=== PATIENT | male | born 1980 | race Caucasian/White ===

== ENCOUNTER → 2018-07-29 08:56 | Outpatient (CLI) | payer OTHER, SELFPAY ==
[2018-07-28 09:20] VITALS: BMI 29.3
--- NOTE | 2018-07-29 08:59 | RAD_ITS ---
STUDY: X-RAY - LUMBAR SPINE REASON FOR EXAM: Male, 38 years old. Back pain. TECHNIQUE: 2 lateral view(s) of the lumbar spine were obtained, one in flexion and one in extension. COMPARISON: None FINDINGS: There is an exaggerated lumbar lordosis. There is limited range of motion on flexion-extension with an approximate 7 degrees diminished lordosis both at L3-4 and at L5-S1 on flexion compared to distention. There is a normal alignment of the vertebrae without demonstrated instability. There is multilevel endplate spondylosis of the lumbar vertebrae. There is multi-level degenerative disc disease with multi-level disc space narrowing. There is no demonstrated osseous destructive lesion or acute fracture. Generative changes suggested in the lower lumbar facet articulations. The soft tissue structures are unremarkable. RAD/Lumbar Spine 2 or 3 Views IMPRESSION: Degenerative changes of the spine, as detailed above. There is an exaggerated lumbar lordosis and limited range of motion between flexion and extension. Electronically Signed: Carlos Canales MD at 18:47 EST , Service support ,
== END ==
PROVIDERS: Referring Provider Physician Assistant; Visit Provider Physician Assistant
DX: S39.012A Strain of muscle, fascia and tendon of lower back, initial encounter (principal)
CPT/HCPCS: 72100

== ENCOUNTER → 2018-08-18 10:20 | Outpatient (CLI) | payer OTHER, SELFPAY ==
[2018-08-03 09:57] VITALS: BMI 29.3
[2018-08-12 10:15] VITALS: BMI 29.3
--- NOTE | 2018-08-18 10:22 | MRI_ITS ---
STUDY: MRI LUMBAR SPINE WITHOUT CONTRAST REASON FOR EXAM: Male, 38 years old. low back pain, repetative lifting injury, rt leg pain. TECHNIQUE: Standardized fat and water weighted pulse sequences were obtained in the sagittal and axial planes. COMPARISON: X-ray dated July 29, 2018 FINDINGS: T12-L1: There is minimal disc space narrowing and endplate spondylosis. There is no significant disc herniation, central canal or foraminal stenosis. Normal lumbar lordosis. There is no substantial scoliosis. Normal conus medullaris that terminates at the L1 L1-2: Normal endplates. Normal disc height, hydration and morphology. Normal bilateral facet joints. Normal central canal and bilateral lateral recesses. Normal bilateral intervertebral neural foramina. L2-3: Normal endplates. Normal disc height, hydration and morphology. Normal bilateral facet joints. Normal central canal and bilateral lateral recesses. Normal bilateral intervertebral neural foramina. L3-4: There is minimal disc space narrowing and endplate spondylosis. There is no significant disc herniation, central canal or foraminal stenosis. L4-5: There is mild disc space narrowing and endplates spondylosis. There is a mild disc bulge with shallow central protrusion without significant central canal stenosis. There is mild bilateral foraminal stenosis. L5-S1: There is mild disc space narrowing and endplates spondylosis. There is a mild disc bulge with small central protrusion without significant central canal stenosis. There is mild bilateral foraminal stenosis. Normal visualized sacral ala. Normal visualized paraspinous soft tissue structures. MRI/Spine Lumbar (Routine) IMPRESSION: Mild degenerative changes. Electronically Signed: Michelle Morrissey MD at 11:03 EST Tel , Service support ,
== END ==
PROVIDERS: Family Provider Family Medicine; PCP Family Medicine; Referring Provider Chiropractor; Visit Provider Chiropractor
DX: S39.012A Strain of muscle, fascia and tendon of lower back, initial encounter (principal); X50.3XXA Overexertion from repetitive movements, initial encounter
CPT/HCPCS: 72148

== ENCOUNTER → 2018-10-15 08:02 | Outpatient (CLI) | payer BC, SELFPAY ==
[2018-10-04 13:49] VITALS: BMI 29.3
[2018-10-15 12:10] LABS: Absolute Neutrophil Count 1.7 X10^3/uL (2.0-7.7); Basophil# 0.02 X10^3/uL; Basophil% 0.6 % (0-1); Eosinophil# 0.04 X10^3/uL; Eosinophils% 1.2 % (0-5); Hematocrit 43.2 % (40-54); Hemoglobin 14.3 g/dl (13.0-16.5); Lymphocyte % 34.8 % (19-41); Mean Corp Hgb Conc 33.1 g/gl (32-36); Mean Corpuscular Hgb 30.3 pg (27.0-32.0); Mean Corpuscular Volume 91.5 fL (80-94); Monocyte# 0.45 X10^3/uL; Neutrophil # 1.73 X10^3/uL (2.7-7.7); Neutrophil % 50.1 % (47-70); POSITIVE COUNT NO; POSITIVE DIFFERENTIAL NO; POSITIVE MORPHOLOGY NO; Platelet Count 252 K/mm3 (150-450); RBC Distribution Width CV 12.4 % (11.6-14.6); Red Blood Count 4.72 M/mm3 (4.6-6.2); White Blood Count 3.5 K/mm3 (4.4-11.0)
[2018-10-15 12:29] LABS: ALB/GLOB Ratio 1.1 RATIO (0.9-2.4); AST(SGOT) 29 U/L (15-37); Alanine Aminotransfer ALT/SGPT 42 U/L (16-61); Albumin, Serum 4.1 g/dL (3.2-5.0); Alkaline Phosphatase 80 U/L (45-117); Anion Gap 6 (5-15); BUN 15 mg/dL (7-18); BUN/Creat Ratio 16.2 RATIO (10-20); Chloride 107 mmol/L (98-107); Cholesterol 201 mg/dL (200); Creatinine, Serum 0.93 mg/dL (0.70-1.30); EST Glomerular Filtration Rate 96 mL/min (>60); Est Glom Filt Rate - Afr Amer 116 mL/min (>60); Globulin 3.6 g/dL (2.2-4.2); Glucose 83 mg/dL (74-106); High Density Lipoprotein 53 mg/dL; Potassium 4.4 mmol/L (3.5-5.1); Protein, Total 7.7 g/dL (6.4-8.2); Sodium Level 138 mmol/L (136-145); Triglycerides 77 mg/dL; Very Low Density Lipoprotein 15 mg/dL (5-40)
== END ==
PROVIDERS: Family Provider Family Medicine; PCP Family Medicine; Visit Provider Family Medicine
DX: Z00.01 Encounter for general adult medical examination with abnormal findings (principal); I10 Essential (primary) hypertension
CPT/HCPCS: 36415; 80053; 80061; 85025

== ENCOUNTER 2022-01-02 08:03 | Outpatient (RCR) | payer BC, SELFPAY ==
--- NOTE | 2022-01-02 08:32 | HP.PTEVAL_ITS ---
Patient's Visit Information ANNA DOLL is a 41 year old M referred to Physical Therapy by Dr. Costa Patterson DO with a diagnosis of ITBand Syndrome. Date of Evaluation: 01/02/22 Physical Therapist: Lolita Mojica DPT - Visit Plan Frequency: 1x/Week Plan: Does not require PT at this time- educated on importance of movement and exercise. - Subjective Patient has been battleing back problems- multiple disc issues- last time if flared up it started to bother him into the left hip. He sees Dr. Neves who gave him stretches and sent him to Dr. Cowan. He went to see Dr. Cowan and he gave him an injection and now he is pain free. Pain was in the greater troch and then radiated to the knee. He has been pain free since a few days after the injection. Describes the pain in the hip as sharp. Agg: was sitting and moving after that. Eases: Ibuprofen. 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 He does not do exercises on a daily basis. L5- S1 has had x-rays and MRI. Manageable with chiro care but does flare up but he does have pain that radiates to the knee. Flares up a couple of times a year. No N/T in the toes. Flare was about a month ago but is not flared now. PMHx/Meds: see ortho note. Patient feels that he is 100% at this time. - Objective Posture: good throughout treatment session in hard back chair and plinth unsupported. Gait: no deviation noted. HR/TR: able without UE A. SLS: 30 sec without LOB or hip drop. Sensation: WFL. ROM: WFL in all planes. Strength: Core: good, Hip: 5/5 in all planes, Knee: 5/5, Ankle: 5/5. Flex: HS: no restriction, Quad: no restriction, Gastroc: no restriction, ITBand: no restriction - Special Tests L Hip Scour: Negative L Hip Quadrant - Intraarticular Pathology: Negative L Hip KADEN - Intraarticular Pathology: Negative L Hip FADDIR - Labrum: Negative L Hip Impingement Provocation - Labrum: Negative L Hip Trendelenberg - Glut Medius: Negative L Hip Rochelle - IT Band: Negative - Balance/Special Test Scores Lower Extremity Functional Score: 76 - Goals Goal 1:: Patient will be I with HEP and progression Goal Time Frame: 4-6 Weeks - Rehabilitation Potential Physical Therapy Diagnosis: Patient presents with full strength, flex and muscular endurance and does not require PT at this time. - Anticipated Interventions Thank you for the opportunity to evaluate your patient. For Medicare and Medicare HMO plans, please review the plan of care and approve it. It will need to be FAXED BACK to us at [phone] for Medicare purposes. For Medicare only, by signing this I certify the plan of care. Please let me know if there are questions or concerns regarding this plan of care. Physician Signature: Date:
--- NOTE | 2022-02-06 14:37 | HP.PTDCSUM ---
It has been my pleasure to treat ANNA DOLL referred by Dr. Costa Patterson DO, with the diagnosis of ITBand Syndrome for a total of 1 visit(s). Discharge Date: 01/02/22 Please see the following information for a summary of their discharge status. Goal 1:: Patient will be I with HEP and progression Plan: Does not require PT at this time- educated on importance of movement and exercise. Discharge Comments: Patient is doing well 100% back to normal- good strength and flexibility. If there are questions or concerns regarding this patient's physical therapy, please feel free to call me at [phone]. Thank you for the referral of this patient. Sincerely, Lolita Mojica, YUT Balance/Gait/Functional tests - Balance/Special Test Scores Lower Extremity Functional Score: 76
== END 2022-01-02 19:00 | disposition home or self-care (01) ==
LOC: PT 08:03
PROVIDERS: PCP Family Medicine; Referring Provider Orthopaedic Surgery; Visit Provider Orthopaedic Surgery
DX: M76.32 Iliotibial band syndrome, left leg (principal); M70.62 Trochanteric bursitis, left hip
CPT/HCPCS: 97161

== ENCOUNTER → 2023-02-16 | Outpatient (CLI) | payer OTHER, SELFPAY ==
[2023-02-16 12:27] LABS: Anion Gap 5 (5-15); BUN 18 mg/dL (7-18); Calcium,Total 9.7 mg/dL (8.5-10.1); Chloride 103 mmol/L (98-107); Cholesterol 279 mg/dL (200); Creatinine, Serum 1.06 mg/dL (0.70-1.30); EST Glomerular Filtration Rate 81 mL/min (>60); Est Glom Filt Rate - Afr Amer 98 mL/min (>60); Glucose 103 mg/dL (74-106); High Density Lipoprotein 75 mg/dL; Potassium 5.2 mmol/L (3.5-5.1); Sodium Level 135 mmol/L (136-145); Triglycerides 81 mg/dL; Very Low Density Lipoprotein 16 mg/dL (5-40)
[2023-02-17 15:08] LABS: Lipoprotein A 25.8 nmol/L (<75.0)
== END | disposition home or self-care (01) ==
PROVIDERS: PCP Family Medicine; Referring Provider Family Medicine; Visit Provider Family Medicine
DX: I10 Essential (primary) hypertension (principal); E78.5 Hyperlipidemia, unspecified; Z82.49 Family history of ischemic heart disease and other diseases of the circulatory system
CPT/HCPCS: 36415; 80048; 80061; 83695

== ENCOUNTER → 2025-05-08 | Outpatient (CLI) | payer OTHER, SELFPAY ==
[2025-05-08 10:23] LABS: Hematocrit 41.1 % (40-54); Hemoglobin 14.0 g/dL (13.0-16.5); Immature Granulocytes Count 0.010 X10^3/uL (0.0-0.0); Mean Corp Hgb Conc 34.1 g/dL (32-36); Mean Corpuscular Volume 91.7 fL (80-94); Mean Platelet Vol. 9.1 fl (6.2-12.0); NRBC Flagged by Analyzer 0 % (0-5); Platelet Count 209 K/mm3 (150-450); RBC Distribution Width CV 12.3 % (11.6-14.6); RBC Distribution Width SD 41.4 fl (35.1-43.9); Red Blood Count 4.48 M/mm3 (4.6-6.2); White Blood Count 4.3 K/mm3 (4.4-11.0)
[2025-05-08 10:46] LABS: AST(SGOT) 47 U/L (<=37); Alanine Aminotransfer ALT/SGPT 80 U/L (<=46); Albumin, Serum 4.7 g/dL (3.5-5.0); Alkaline Phosphatase 66 U/L (40-129); Anion Gap 11 (5-15); BUN 22 mg/dL (4-19); BUN/Creat Ratio 23.5 RATIO (10-20); Calcium,Total 9.6 mg/dL (7.6-11.0); Carbon Dioxide 23.5 mmol/L (21.0-32.0); Chloride 104 mmol/L (98-108); Cholesterol 181 mg/dL (<=200); Globulin 2.7 g/dL (2.2-4.2); Glucose 92 mg/dL (70-99); Low Density Lipoprotein Calc. 106 mg/dL; Potassium 4.6 mmol/L (3.3-5.1); Triglycerides 85 mg/dL; Very Low Density Lipoprotein 17 mg/dL (5-40); cholesterol:hdl ratio screen 3.10
== END | disposition home or self-care (01) ==
PROVIDERS: PCP Family Medicine; Referring Provider Family Medicine; Visit Provider Family Medicine
DX: Z00.00 Encounter for general adult medical examination without abnormal findings (principal)
CPT/HCPCS: 36415; 80053; 80061; 85025